=== PATIENT | female | born 2000 | race Caucasian/White ===

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

== ENCOUNTER 2023-08-29 16:25 | Emergency (ER) | payer BC, SELFPAY ==
[2023-08-29 16:33] VITALS: BP 114/81; PULSE 91; RESP 16; TEMP 36.9; O2SAT 100
--- NOTE | 2023-08-29 16:42 | ED.URI ---
HPI - URI/Sore Throat General Chief Complaint: Upper Respiratory Infection Stated Complaint: Sinus Infection Time Seen by Provider: 08/29/23 16:40 Source: patient Mode of arrival: ambulatory Limitations: no limitations History of Present Illness HPI Narrative: Xavier is a 23-year-old female patient presenting to the clinic today with complaints of a possible sinus infection. She reports she is having nasal congestion, sinus pressure, headache, and cough with postnasal drip. She reports that she gets a sinus infection every year. Symptoms have been going on for 4 days. She denies any fever or chills. States she is having some yellow and green discoloration nasal drainage at times. MD elicited complaint: cough, sore throat, rhinorrhea, nasal congestion and sinus pain Related Data Allergies Allergy/AdvReac Type Severity Reaction Status Date / Time sulfamethoxazole Allergy Vomiting Verified 08/29/23 16:33 [From Bactrim] trimethoprim [From Bactrim] Allergy Vomiting Verified 08/29/23 16:33 Review of Systems Review of Systems: Pertinent positives per HPI. Patient denies any fever, chills, rash, headache, visual changes, dizziness, cough, shortness of breath, chest pain, palpitations, nausea, vomiting, diarrhea, constipation, abdominal pain, or any urinary issues. PMFSH Comments At the time of my signature, I reviewed and agree with the nursing past medical, surgical, social, and family history. There is no relevant family history pertinent to the patient complaint. Exam Narrative: General: Well-developed, well nourished, in no apparent distress Head: Normocephalic, atraumatic Eyes: Pupils equally round and reactive to light bilaterally, EOM intact, sclera and conjunctive clear, no discharge, lids normal Ears: TMs intact and clear, ear canals clear, no drainage, grossly hearing normal. Nose: Nares patent, no discharge, no inflammation, no sinus tenderness. Mouth: Oral pharynx without lesions or masses, good dentition, MMM. Neck: Supple, trachea midline, no enlargement of anterior or posterior cervical nodes, no thyroid masses or goiter palpable. Cardio: Regular rate and rhythm, s1 and s2 normal, no murmur appreciated. Resp: Clear to auscultation bilaterally, no rhonchi, rales, wheezing or rubs Course Course Emergency Course: Portions of this record may have been created with voice recognition software. Level of Care: Express Care Visit Vital Signs Vital signs: Vital Signs Temperature 36.9 C 08/29/23 16:33 Pulse Rate 91 08/29/23 16:33 Respiratory Rate 16 08/29/23 16:33 Blood Pressure 114/81 08/29/23 16:33 Pulse Oximetry 100 08/29/23 16:33 Oxygen Delivery Room Air 08/29/23 16:33 Temperature 36.9 C 08/29/23 16:33 Pulse Rate 91 08/29/23 16:33 Respiratory Rate 16 08/29/23 16:33 Blood Pressure 114/81 08/29/23 16:33 Pulse Oximetry 100 08/29/23 16:33 Oxygen Delivery Room Air 08/29/23 16:33 Vital signs reviewed MDM - URI/Sore Throat MDM Narrative Medical decision making narrative: At the time of visit patient is resting comfortably on the exam table. Offer to do COVID and strep test and patient declined at this time. I suspect patient has URI. Prescription for prednisone was sent to the pharmacy. Supportive measures were discussed with the patient she voiced understanding discharge instructions and agrees to treatment plan. Differential Diagnosis Differential diagnosis: Likely upper respiratory infection, otitis media, sinusitis, viral infection, bronchitis, influenza, pharyngitis and other (COVID) Discharge Plan Discharge Clinical Impression: Upper respiratory infection Patient Disposition: Home, Self-Care Condition: Stable Instructions: Antibiotic Form, Upper Respiratory Infection (ED) Additional Instructions: Take prescription medications only as prescribed-prednisone Increase fluids and stay well hydrated Tylenol/motrin for pain/fever
== END 2023-08-29 16:46 | disposition home or self-care (01) ==
PROVIDERS: Emergency Provider Nurse Practitioner Family; PCP Nurse Practitioner Family
DX: J06.9 Acute upper respiratory infection, unspecified (principal); Z89.612 Acquired absence of left leg above knee
CPT/HCPCS: 99213; G0463

== ENCOUNTER → 2023-09-02 07:46 | Outpatient (CLI) | payer BC, SELFPAY ==
--- NOTE | ~2023-09-02 | US_ITS ---
EXAMINATION: US pelvic complete w TV DATE: 09/02/2023 08:23 INDICATION: Irregular periods. Comparison:No prior studies for comparison. TECHNIQUE: Multiple transabdominal and endovaginal sonographic images of the pelvis performed. FINDINGS: The uterus measures 6.6 x 3.7 x 3.3 cm. There is an IUD in the endometrium. The endometrial complex measures 4 mm. The right ovary measures 2.3 x 2.2 x 1.2 cm and the left ovary measures 2.5 x 2 x 2 cm. There are sm all follicles in each ovary. Normal doppler signal in both ovaries. There is free fluid in the pelvis. There are no abnormal masses seen on either side. IMPRESSION: 1. Unremarkable pelvic ultrasound. Reviewed, dictated and finalized at location B.
== END ==
PROVIDERS: PCP Nurse Practitioner Family
DX: N92.6 Irregular menstruation, unspecified (principal); Z97.5 Presence of (intrauterine) contraceptive device
CPT/HCPCS: 76830; 76856

== ENCOUNTER 2023-09-20 09:01 | Emergency (ER) | payer BC, SELFPAY ==
[2023-09-20 09:09] VITALS: BP 120/79; PULSE 102; RESP 16; TEMP 36.8; O2SAT 100
--- NOTE | 2023-09-20 09:43 | ED.URI ---
HPI - URI/Sore Throat General Chief Complaint: Upper Respiratory Infection Stated Complaint: COLD SYMPTOMS Time Seen by Provider: 09/20/23 09:40 Source: patient and RN notes reviewed Mode of arrival: ambulatory Limitations: no limitations History of Present Illness HPI Narrative: 23-year-old female presents with concern for 3 week history of sinus congestion, sinus pain, thick green drainage. Reports she was seen 4 days in her symptoms and was prescribed a steroid which she took with some relief of swelling but symptoms persist. She denies fever, aches, chills, sweats. MD elicited complaint: nasal congestion and sinus pain Related Data Allergies Allergy/AdvReac Type Severity Reaction Status Date / Time sulfamethoxazole Allergy Vomiting Verified 08/29/23 16:33 [From Bactrim] trimethoprim [From Bactrim] Allergy Vomiting Verified 08/29/23 16:33 Review of Systems Review of Systems: CONSTITUTIONAL: Denies malaise, chills, sweats, or fever. EYES: Denies visual changes, redness, or discharge. ENT: Reports rhinorrhea, congestion, sinus pain CARDIOVASCULAR: Denies chest pain, palpitations, or edema. RESPIRATORY: Denies cough. Denies dyspnea. GASTROINTESTINAL: Denies abdominal pain, nausea, vomiting, diarrhea SKIN: Denies rash or itching. MUSCULOSKELETAL: Denies myalgia. NEUROLOGIC: Denies headache. All systems reviewed & are unremarkable except as noted in HPI and below PMFSH Comments At time of signature, agree with nursing past medical, surgical, social and family history. There is no relevant family history pertinent to the presenting complaint Exam Narrative: GENERAL: Well-appearing, well-nourished, and in no acute distress. HEAD: Normocephalic EYES: PERRLA, conjunctivae clear ENT: Nares clear, turbinates edematous and erythematous, green discharge. Mucous membranes moist. TM pearly brown with dull light reflex bilaterally; no tragal tenderness. Oropharynx not erythematous without lesions. Tonsils not enlarged and without exudate, no drooling, no hoarseness, no trismus, uvula midline. NECK: Supple. No lymphadenopathy CHEST: Clear to auscultation, breath sounds equal. No wheezing, rhonchi, rales, or stridor. No respiratory distress, speaks in full sentences. HEART: Regular rate and rhythm. No murmur heard. SKIN: Warm, dry, no rash. NEURO: Alert and oriented x3. PSYCH: Normal mood and affect Course Course Emergency Course: Patient is aware of diagnosis, understands and agrees to treatment plan. Anticipatory guidance given. Patient agrees to follow-up as directed and is aware of reasons to seek care at the emergency department. Portions of this record may have been created with voice recognition software Level of Care: Express Care Visit Vital Signs Vital signs: Vital Signs Temperature 98.2 F 09/20/23 09:09 Pulse Rate 102 H 09/20/23 09:09 Respiratory Rate 16 09/20/23 09:09 Blood Pressure 120/79 09/20/23 09:09 Pulse Oximetry 100 09/20/23 09:09 Temperature 98.2 F 09/20/23 09:09 Pulse Rate 102 H 09/20/23 09:09 Respiratory Rate 16 09/20/23 09:09 Blood Pressure 120/79 09/20/23 09:09 Pulse Oximetry 100 09/20/23 09:09 Reviewed. MDM - URI/Sore Throat MDM Narrative Medical decision making narrative: Differential diagnosis considered: Peral[place] virus, strep pharyngitis, allergic rhinitis, upper respiratory tract infection, sinusitis, rhinosinusitis, nasopharyngitis. viral pharyngitis, otitis media, otitis externa, pneumonia, bronchitis, viral cough syndrome, viral syndrome, and influenza. Exam findings show no acute concerns or changes; patient is non-toxic appearing and is in no distress. Patient is appropriate for outpatient treatment and follow-up. Lab Data Attestation: I reviewed the patient's lab results. Critical Care Time Critical Care Time Critical Care Time: No Discharge Plan Discharge Clinical Impression: Acute bacterial sinusitis Patient Disposition:
== END 2023-09-20 09:55 | disposition home or self-care (01) ==
PROVIDERS: Emergency Provider Nurse Practitioner; PCP Nurse Practitioner Family
DX: J01.90 Acute sinusitis, unspecified (principal)
CPT/HCPCS: 99213; G0463